=== PATIENT | male | born 1960 | race African-American/Black ===

== ENCOUNTER 2016-12-27 10:46 | Inpatient (IN) | payer MEDICAID ==
[~2016-12-27] VITALS: Ht 198.1 cm; Wt 94.8 kg
[~2016-12-27 10:46] MED LIST: ALPR2TAB2 PO; ASPI-1159 PO; HYDR-519 PO; TRAM-350 PO
[2016-12-27] MEDS ORDERED: SODIUM CHLORIDE 0.9% 1,000 ML IV ONE (11:03)
[2016-12-27] MEDS ORDERED: ASPIRIN 81MG TABLET PO ONE (11:15)
[2016-12-27] MEDS ORDERED: DILTIAZEM HCL 5MG/ML 5ML VIAL IV ONE (11:15)
[2016-12-27 11:58] LABS: BASOPHILS % 0.7 % (0.0-2.0); EOSINOPHILS % 0.2 % (0.0-5.0); HEMATOCRIT. 43.9 % (42.0-52.0); HEMOGLOBIN. 14.9 g/dL (14.0-18.0); LYMPHOCYTES % 26.4 % (20.0-50.0); MEAN CORPUSCULAR HEMOGLOBIN 32.3 pg (28.0-32.0); MEAN CORPUSCULAR VOLUME 95.2 fL (80.0-94.0); MEAN PLATELET VOLUME 7.2 fl (7.4-10.4); MONOCYTES % 5.1 % (2.0-8.0); NEUTROPHILS % 67.6 % (40.0-76.0); PLATELET 320 x1000/uL (130-400); RED BLOOD CELL COUNT 4.61 mill/uL (4.7-6.1); RED CELL DISTRIBUTION WIDTH 13.9 % (11.6-14.6)
[2016-12-27 12:06] LABS: CHLORIDE 106 mEq/L (98-107)
[2016-12-27 12:13] LABS: CARBON DIOXIDE 23 mEq/L (21-32)
[2016-12-27 12:15] LABS: TROPONIN I < 0.02 ng/mL (0.00-0.04)
[2016-12-27] MEDS ORDERED: MORPHINE SULFATE 10 MG/ML CPJ IV ONE (12:15)
[2016-12-27] MEDS ORDERED: ONDANSETRON HCL 4MG/2ML VIAL IV ONE (12:15)
[2016-12-27 12:19] LABS: INR 1.2; PARTIAL THROMBOPLASTIN TIME 27.3 sec (23.4-31.0); PROTHROMBIN TIME 12.1 sec (9.4-11.6)
[2016-12-27] MEDS ORDERED: MORPHINE SULFATE 10 MG/ML CPJ ONE (12:24)
[2016-12-27] MEDS ORDERED: DILTIAZEM HCL 5MG/ML 5ML VIAL IV PRN (13:45)
[2016-12-27] MEDS ORDERED: MAGNESIUM/ALUMINUM HYDROXIDE/SIMETHICONE 30ML UDC PO PRN (14:00)
[2016-12-27] MEDS ORDERED: CLONIDINE 0.1MG TABLET PO PRN (14:00)
[2016-12-27] MEDS ORDERED: ONDANSETRON HCL 4MG/2ML VIAL IV PRN (14:00)
[2016-12-27] MEDS ORDERED: ACETAMINOPHEN 325MG TABLET PO PRN (14:00)
[2016-12-27] MEDS ORDERED: IPRATROPIUM/ALBUTEROL 0.5-3(2.5)MG/3ML NEB INH PRN (14:00)
[2016-12-27] MEDS ORDERED: DOCUSATE SODIUM 100MG CAPSULE PO PRN (14:00)
[2016-12-27 14:38] LABS: CARBON DIOXIDE 24 mEq/L (21-32); CHLORIDE 108 mEq/L (98-107)
[2016-12-27 14:47] LABS: CREATINE KINASE 543 IU/L (39-308); CREATINE KINASE MB FRACTION 1.5 ng/mL (0.5-3.6); TROPONIN I < 0.02 ng/mL (0.00-0.04)
[2016-12-27 15:30] VITALS: BP 130/84
[2016-12-27] MEDS: DILTIAZEM HCL 60MG TABLET PO SCH ×2 (15:38→21:02)
[2016-12-27] MEDS: HYDROCODONE/ACETAMINOPHEN 5/325MG TABLET PO PRN ×2 (15:42→21:03)
[2016-12-27 16:00] VITALS: BP 130/84
[2016-12-27] MEDS: APIXABAN 5 MG TABLET PO SCH (17:32)
[2016-12-27 20:00] VITALS: BP 120/77
[2016-12-27] MEDS: LORAZEPAM 2MG/ML CPJ IV PRN (21:23)
[2016-12-27] MEDS: AMIODARONE HCL 200 MG TABLET PO SCH (21:23)
[2016-12-27 23:38] LABS: CREATINE KINASE 488 IU/L (39-308); CREATINE KINASE MB FRACTION 1.3 ng/mL (0.5-3.6); TROPONIN I < 0.02 ng/mL (0.00-0.04)
[2016-12-28] VITALS (7 sets, daily range): BP systolic 101–133; BP diastolic 62–83
[2016-12-28 00:02] LABS: CLARITY URINE CLEAR (CLEAR); COLOR URINE DARK YELLOW (YELLOW); GLUCOSE URINE NEGATIVE (NEGATIVE); KETONES URINE 1+ (NEGATIVE); LEUKOCYTE ESTERASE URINE NEGATIVE (NEGATIVE); NITRITE URINE NEGATIVE (NEGATIVE); OCCULT BLOOD URINE NEGATIVE (NEGATIVE); PH URINE 5.5 (4.5-8.0); PROTEIN URINE NEGATIVE (NEGATIVE); SPECIFIC GRAVITY URINE 1.028 (1.005-1.030)
[2016-12-28 00:29] LABS: *AMPHETAMINES SCREEN URINE NEGATIVE (NEGATIVE); *BARBITURATES SCREEN URINE NEGATIVE (NEGATIVE); *BENZODIAZEPINES SCREEN URINE PRESUMTIVE POSITIVE (NEGATIVE); *COCAINE SCREEN URINE NEGATIVE (NEGATIVE); CANNABINOID URINE SCREEN NEGATIVE (NEGATIVE); METHADONE URINE SCREEN NEGATIVE (NEGATIVE); OPIATES URINE SCREEN PRESUMTIVE POSITIVE (NEGATIVE); PHENCYCLIDINE URINE SCREEN NEGATIVE (NEGATIVE)
[2016-12-28] MEDS: LORAZEPAM 2MG/ML CPJ IV PRN ×3 (01:07→20:40)
[2016-12-28] MEDS: DILTIAZEM HCL 60MG TABLET PO SCH ×4 (03:57→21:03)
[2016-12-28] MEDS: HYDROCODONE/ACETAMINOPHEN 5/325MG TABLET PO PRN ×2 (03:58→09:57)
[2016-12-28 08:18] LABS: BASOPHILS % 1.1 % (0.0-2.0); EOSINOPHILS % 0.5 % (0.0-5.0); HEMOGLOBIN. 13.7 g/dL (14.0-18.0); LYMPHOCYTES % 35.5 % (20.0-50.0); MEAN CORPUSCULAR HEMOGLOBIN 31.6 pg (28.0-32.0); MEAN CORPUSCULAR VOLUME 94.5 fL (80.0-94.0); MEAN PLATELET VOLUME 7.4 fl (7.4-10.4); MONOCYTES % 6.1 % (2.0-8.0); NEUTROPHILS % 56.8 % (40.0-76.0); PLATELET 283 x1000/uL (130-400); RED BLOOD CELL COUNT 4.34 mill/uL (4.7-6.1); RED CELL DISTRIBUTION WIDTH 13.9 % (11.6-14.6)
[2016-12-28 08:52] LABS: T4 FREE 1.27 ng/dL (0.76-1.46)
[2016-12-28] MEDS: AMIODARONE HCL 200 MG TABLET PO SCH ×2 (09:56→20:40)
[2016-12-28] MEDS: APIXABAN 5 MG TABLET PO SCH ×2 (09:56→17:42)
[2016-12-28] MEDS: HYDROCODONE/ACETAMINOPHEN 10/325MG TABLET PO PRN ×2 (14:09→22:15)
[2016-12-28] MEDS ORDERED: PIPERACILLIN/TAZ 3.375G PREMIX 50 ML IV SCH (17:30)
[2016-12-28] MEDS: MORPHINE SULFATE 10 MG/ML CPJ IV PRN (18:16)
[2016-12-28] MEDS: PIPERACILLIN/TAZ 3.375G PREMIX 50 ML IV SCH (20:40)
[2016-12-29] VITALS (7 sets, daily range): BP systolic 99–131; BP diastolic 68–77
[2016-12-29] MEDS: TEMAZEPAM 15MG CAPSULE PO PRN (02:18)
[2016-12-29] MEDS: DILTIAZEM HCL 60MG TABLET PO SCH ×4 (02:29→20:13)
[2016-12-29] MEDS: PIPERACILLIN/TAZ 3.375G PREMIX 50 ML IV SCH (05:34)
[2016-12-29] MEDS: HYDROCODONE/ACETAMINOPHEN 10/325MG TABLET PO PRN ×3 (05:39→17:37)
[2016-12-29] MEDS: APIXABAN 5 MG TABLET PO SCH ×2 (08:08→17:36)
[2016-12-29 08:31] LABS: EOSINOPHILS % 0.5 % (0.0-5.0); HEMATOCRIT. 39.1 % (42.0-52.0); HEMOGLOBIN. 13.2 g/dL (14.0-18.0); LYMPHOCYTES % 33.3 % (20.0-50.0); MEAN CORPUSCULAR HEMOGLOBIN 31.9 pg (28.0-32.0); MEAN CORPUSCULAR VOLUME 94.2 fL (80.0-94.0); MEAN PLATELET VOLUME 7.7 fl (7.4-10.4); MONOCYTES % 4.4 % (2.0-8.0); NEUTROPHILS % 60.8 % (40.0-76.0); PLATELET 277 x1000/uL (130-400); RED BLOOD CELL COUNT 4.15 mill/uL (4.7-6.1); RED CELL DISTRIBUTION WIDTH 13.9 % (11.6-14.6)
[2016-12-29 09:23] LABS: CHLORIDE 106 mEq/L (98-107)
[2016-12-29 09:44] LABS: CARBON DIOXIDE 22 mEq/L (21-32)
[2016-12-29] MEDS: LORAZEPAM 2MG/ML CPJ IV PRN (10:12)
[2016-12-29] MEDS: AMIODARONE HCL 200 MG TABLET PO SCH ×2 (10:18→20:14)
[2016-12-29] MEDS: MORPHINE SULFATE 10 MG/ML CPJ IV PRN ×2 (14:14→20:14)
[2016-12-29] MEDS: ALPRAZOLAM 0.5 MG TABLET PO PRN (20:14)
[2016-12-30] VITALS: BP 127/88
[2016-12-30] MEDS: HYDROCODONE/ACETAMINOPHEN 10/325MG TABLET PO PRN ×3 (00:55→18:09)
[2016-12-30 04:00] VITALS: BP 118/86
[2016-12-30] MEDS: DILTIAZEM HCL 60MG TABLET PO SCH ×2 (04:55→09:05)
[2016-12-30] MEDS: MORPHINE SULFATE 10 MG/ML CPJ IV PRN ×2 (04:56→15:01)
[2016-12-30 07:43] LABS: CARBON DIOXIDE 23 mEq/L (21-32); CHLORIDE 104 mEq/L (98-107)
[2016-12-30 07:56] LABS: BASOPHILS % 1.2 % (0.0-2.0); EOSINOPHILS % 0.7 % (0.0-5.0); HEMATOCRIT. 41.2 % (42.0-52.0); HEMOGLOBIN. 13.9 g/dL (14.0-18.0); LYMPHOCYTES % 35.5 % (20.0-50.0); MEAN CORPUSCULAR HEMOGLOBIN 31.8 pg (28.0-32.0); MEAN CORPUSCULAR VOLUME 94.2 fL (80.0-94.0); MEAN PLATELET VOLUME 7.8 fl (7.4-10.4); MONOCYTES % 4.6 % (2.0-8.0); PLATELET 272 x1000/uL (130-400); RED BLOOD CELL COUNT 4.38 mill/uL (4.7-6.1); RED CELL DISTRIBUTION WIDTH 13.6 % (11.6-14.6)
[2016-12-30 08:00] VITALS: BP 136/88
[2016-12-30] MEDS: AMIODARONE HCL 200 MG TABLET PO SCH ×2 (09:05→20:48)
[2016-12-30] MEDS: APIXABAN 5 MG TABLET PO SCH ×2 (09:05→17:49)
[2016-12-30] MEDS: DILTIAZEM HCL 180MG CAPSULE CD 24HR PO SCH ×2 (14:37→20:48)
[2016-12-30] MEDS: NICOTINE 14MG PATCH TD SCH (14:37)
[2016-12-30 16:06] VITALS: BP 147/97
[2016-12-30] MEDS: ALPRAZOLAM 0.5 MG TABLET PO PRN (18:09)
[2016-12-30 20:00] VITALS: BP 110/66
[2016-12-30] MEDS: TEMAZEPAM 15MG CAPSULE PO PRN (20:48)
[2016-12-31] VITALS: BP 115/66
[2016-12-31] MEDS: HYDROCODONE/ACETAMINOPHEN 10/325MG TABLET PO PRN ×4 (00:05→19:45)
[2016-12-31] MEDS: ALPRAZOLAM 0.5 MG TABLET PO PRN ×3 (02:06→21:21)
[2016-12-31 04:00] VITALS: BP 112/76
[2016-12-31 08:00] VITALS: BP 113/79
[2016-12-31] MEDS: DILTIAZEM HCL 180MG CAPSULE CD 24HR PO SCH ×2 (09:00→21:20)
[2016-12-31] MEDS: NICOTINE 14MG PATCH TD SCH (09:34)
[2016-12-31] MEDS: AMIODARONE HCL 200 MG TABLET PO SCH ×2 (09:34→21:20)
[2016-12-31] MEDS: APIXABAN 5 MG TABLET PO SCH ×2 (09:34→18:14)
[2016-12-31 12:00] VITALS: BP 120/72
[2016-12-31 16:00] VITALS: BP 119/71
[2016-12-31] MEDS: MORPHINE SULFATE 10 MG/ML CPJ IV PRN ×2 (18:14→23:56)
[2016-12-31 20:00] VITALS: BP 117/65
[2016-12-31] MEDS: TEMAZEPAM 15MG CAPSULE PO PRN (21:21)
[2017-01-01] VITALS: BP 127/86
[2017-01-01 04:00] VITALS: BP 127/81
[2017-01-01] MEDS: ALPRAZOLAM 0.5 MG TABLET PO PRN ×2 (06:09→23:09)
[2017-01-01] MEDS: HYDROCODONE/ACETAMINOPHEN 10/325MG TABLET PO PRN ×3 (06:09→20:06)
[2017-01-01 08:00] VITALS: BP 122/84
[2017-01-01] MEDS ORDERED: LIDOCAINE HCL 1% 20ML VIAL (Pyxis) INJ ONE (08:21)
[2017-01-01] MEDS: DILTIAZEM HCL 180MG CAPSULE CD 24HR PO SCH ×2 (09:39→20:05)
[2017-01-01] MEDS: AMIODARONE HCL 200 MG TABLET PO SCH ×2 (09:39→20:05)
[2017-01-01] MEDS: APIXABAN 5 MG TABLET PO SCH ×2 (09:39→17:17)
[2017-01-01] MEDS: NICOTINE 14MG PATCH TD SCH (09:40)
[2017-01-01] MEDS: MORPHINE SULFATE 10 MG/ML CPJ IV PRN ×3 (09:57→22:22)
[2017-01-01] MEDS ORDERED: VANCOMYCIN 1500MG in DEXTROSE 5% WATER 250ML IV SCH (11:00)
[2017-01-01 13:07] VITALS: BP 109/89
[2017-01-01 16:00] VITALS: BP 132/88
[2017-01-01] MEDS: VANCOMYCIN 1250MG in DEXTROSE 5% WATER 250ML IV SCH ×2 (17:17→23:12)
[2017-01-01 20:00] VITALS: BP 108/80
[2017-01-01] MEDS: TEMAZEPAM 15MG CAPSULE PO PRN (23:09)
[2017-01-02] VITALS: BP 120/93
[2017-01-02] MEDS: HYDROCODONE/ACETAMINOPHEN 10/325MG TABLET PO PRN ×2 (03:30→10:02)
[2017-01-02 04:00] VITALS: BP 123/80
[2017-01-02] MEDS: MORPHINE SULFATE 10 MG/ML CPJ IV PRN (06:43)
[2017-01-02] MEDS: VANCOMYCIN 1250MG in DEXTROSE 5% WATER 250ML IV SCH (06:44)
[2017-01-02 08:00] VITALS: BP 127/95
[2017-01-02] MEDS: AMIODARONE HCL 200 MG TABLET PO SCH (10:02)
[2017-01-02] MEDS: APIXABAN 5 MG TABLET PO SCH (10:02)
[2017-01-02] MEDS: DILTIAZEM HCL 180MG CAPSULE CD 24HR PO SCH (10:02)
[2017-01-02] MEDS: NICOTINE 14MG PATCH TD SCH (10:03)
[2017-01-02 11:48] VITALS: BP 107/84
[2017-01-02 12:20] VITALS: BP 127/95
[2017-01-02] MEDS ORDERED: VANCOMYCIN 1500MG in DEXTROSE 5% WATER 250ML IV SCH (16:00)
== END 2017-01-02 13:50 | disposition home health service (06) | DRG 201 ==
LOC: ER 10:46 → EDBEDREQ 12:28 → ENRESERV 12:32 → 5WST 13:32
PROVIDERS: ADMIT Internal Medicine; ATTEND Internal Medicine
PROC: 05HY33Z Insertion of Infusion Device into Upper Vein, Percutaneous Approach (ICD-10-PCS; principal; 2017-01-01)
DX: I48.1 Persistent atrial fibrillation (principal); M86.9 Osteomyelitis, unspecified; I10 Essential (primary) hypertension; J44.9 Chronic obstructive pulmonary disease, unspecified; M19.90 Unspecified osteoarthritis, unspecified site; G40.909 Epilepsy, unspecified, not intractable, without status epilepticus; F41.9 Anxiety disorder, unspecified; F17.200 Nicotine dependence, unspecified, uncomplicated; Z79.82 Long term (current) use of aspirin; Z79.899 Other long term (current) drug therapy; G89.18 Other acute postprocedural pain
CPT/HCPCS: 36415; 36569; 71010; 73610; 76937; 78315; 80048; 80053; 80061; 80305; 81003; 82550; 82553; 83735; 83880; 84439; 84443; 84481; 84484; 85025; 85379; 85610; 85651; 85730; 86140; 87040; 93005; 93306; 93971; 96361; 96374; 96375; 97162; 99285; A9503; C1725; C1893; J2060; J2270; J2405; J2543; J3370; J3490; J7030; J7060

== ENCOUNTER 2017-01-20 11:29 | Emergency (ER) | payer MEDICAID, OTHER ==
[~2017-01-20] VITALS: Ht 190.5 cm; Wt 91.0 kg
[2017-01-20] MEDS ORDERED: SODIUM CHLORIDE 0.9% 1,000 ML IV ONE (13:25)
[2017-01-20] MEDS ORDERED: SODIUM CHLORIDE 0.9% 500 ML IV ONE (13:57)
[2017-01-20] MEDS ORDERED: IBUPROFEN 600MG TABLET PO ONE (14:00)
[2017-01-20 15:22] VITALS: BP 110/71
== END 2017-01-20 15:23 | disposition home or self-care (01) ==
LOC: ER 11:29
DX: M25.572 Pain in left ankle and joints of left foot (principal); R19.03 Right lower quadrant abdominal swelling, mass and lump; I10 Essential (primary) hypertension; I48.91 Unspecified atrial fibrillation; F41.9 Anxiety disorder, unspecified; F17.210 Nicotine dependence, cigarettes, uncomplicated; Z79.01 Long term (current) use of anticoagulants; Z79.82 Long term (current) use of aspirin; Z98.890 Other specified postprocedural states
CPT/HCPCS: 99284; J7040; J7030

== ENCOUNTER 2017-12-04 09:31 | Inpatient (IN) | payer OTHER ==
[~2017-12-04] VITALS: Ht 190.5 cm; Wt 95.3 kg
[~2017-12-04 09:31] MED LIST changes: +RIVA10TA PO
[2017-12-04] MEDS ORDERED: MORPHINE SULFATE 4 MG/ML CPJ (NOT FOR IM USE) IV STA (09:55)
[2017-12-04] MEDS ORDERED: ONDANSETRON HCL 4MG/2ML INJ IV STA (09:55)
[2017-12-04] MEDS ORDERED: DILTIAZEM HCL 5MG/ML 5ML VIAL IV ONE (10:00)
[2017-12-04] MEDS ORDERED: ASPIRIN 81MG TABLET PO ONE (10:00)
[2017-12-04 10:09] LABS: BASOPHILS % 1.2 % (0.0-2.0); EOSINOPHILS % 0.9 % (0.0-5.0); HEMATOCRIT. 44.5 % (42.0-52.0); HEMOGLOBIN. 15.3 g/dL (14.0-18.0); LYMPHOCYTES % 25.6 % (20.0-50.0); MEAN CORPUSCULAR HEMOGLOBIN 33.4 pg (28.0-32.0); MEAN CORPUSCULAR VOLUME 97.1 fL (80.0-94.0); MEAN PLATELET VOLUME 7.3 fl (7.4-10.4); MONOCYTES % 4.5 % (2.0-8.0); NEUTROPHILS % 67.8 % (40.0-76.0); PLATELET 298 x1000/uL (130-400); RED BLOOD CELL COUNT 4.59 mill/uL (4.7-6.1); RED CELL DISTRIBUTION WIDTH 13.9 % (11.6-14.6)
[2017-12-04 10:14] LABS: CHLORIDE 100 mEq/L (98-107)
[2017-12-04] MEDS ORDERED: ONDANSETRON HCL 4MG/2ML INJ IV PRN (11:30)
[2017-12-04] MEDS: ALPRAZOLAM 0.5 MG TABLET PO PRN ×2 (11:57→20:33)
[2017-12-04 12:21] VITALS: BP 144/92
[2017-12-04] MEDS ORDERED: DILTIAZEM HCL 60MG TABLET PO SCH (14:00)
[2017-12-04] MEDS: DILTIAZEM HCL 90MG TABLET PO SCH ×3 (14:06→23:11)
[2017-12-04 16:00] VITALS: BP 93/50
[2017-12-04] MEDS: RIVAROXABAN 20 MG TABLET PO SCH (17:35)
[2017-12-04] MEDS: MORPHINE SULFATE 4 MG/ML CPJ (NOT FOR IM USE) IV PRN ×2 (17:36→22:46)
[2017-12-04] MEDS ORDERED: DIGOXIN 250MCG TABLET PO SCH (18:00)
[2017-12-04 19:52] VITALS: BP 101/54
[2017-12-04] MEDS: HYDROCODONE/ACETAMINOPHEN 5/325MG TABLET PO PRN (20:34)
[2017-12-04] MEDS ORDERED: AMLODIPINE 5MG TABLET PO SCH (21:00)
[2017-12-04 22:46] VITALS: BP 127/73
[2017-12-05 01:28] LABS: CLARITY URINE CLEAR (CLEAR); COLOR URINE YELLOW (YELLOW); KETONES URINE NEGATIVE (NEGATIVE); LEUKOCYTE ESTERASE URINE NEGATIVE (NEGATIVE); NITRITE URINE NEGATIVE (NEGATIVE); OCCULT BLOOD URINE NEGATIVE (NEGATIVE); PH URINE 7.5 (4.5-8.0); PROTEIN URINE NEGATIVE (NEGATIVE); SPECIFIC GRAVITY URINE 1.011 (1.005-1.030); UROBILINOGEN URINE 0.2 E.U./dL (0.2-1.0)
[2017-12-05 01:44] LABS: *AMPHETAMINES SCREEN URINE NEGATIVE (NEGATIVE)
[2017-12-05 01:45] LABS: *BARBITURATES SCREEN URINE NEGATIVE (NEGATIVE); *BENZODIAZEPINES SCREEN URINE PRESUMTIVE POSITIVE (NEGATIVE); *COCAINE SCREEN URINE NEGATIVE (NEGATIVE); METHADONE URINE SCREEN NEGATIVE (NEGATIVE); PHENCYCLIDINE URINE SCREEN NEGATIVE (NEGATIVE)
[2017-12-05 01:46] LABS: CANNABINOID URINE SCREEN NEGATIVE (NEGATIVE); OPIATES URINE SCREEN PRESUMTIVE POSITIVE (NEGATIVE)
[2017-12-05] MEDS: DILTIAZEM HCL 90MG TABLET PO SCH ×3 (04:59→17:35)
[2017-12-05 08:00] VITALS: BP 114/70
[2017-12-05] MEDS: OMEPRAZOLE 20MG CAPSULE EXTENDED RELEASE PO SCH (08:25)
[2017-12-05] MEDS: MORPHINE SULFATE 4 MG/ML CPJ (NOT FOR IM USE) IV PRN ×4 (08:47→22:13)
[2017-12-05] MEDS: HYDROCODONE/ACETAMINOPHEN 5/325MG TABLET PO PRN (11:21)
[2017-12-05] MEDS: ALPRAZOLAM 0.5 MG TABLET PO PRN ×2 (11:32→21:39)
[2017-12-05 11:38] VITALS: BP 123/85
[2017-12-05] MEDS ORDERED: LACTULOSE 20G/30ML UDC PO PRN (12:45)
[2017-12-05] MEDS ORDERED: BISACODYL 10MG SUPP PR PRN (12:45)
[2017-12-05] MEDS: DOCUSATE SODIUM 250MG CAPSULE PO SCH (12:45)
[2017-12-05] MEDS ORDERED: NA PHOS,M-B/NA PHOS,DI-BA ENEMA 118ML PR ONE (12:45)
[2017-12-05 16:00] VITALS: BP 93/53
[2017-12-05 16:43] LABS: BASOPHILS % 0.9 % (0.0-2.0); EOSINOPHILS % 0.9 % (0.0-5.0); HEMATOCRIT. 46.6 % (42.0-52.0); HEMOGLOBIN. 15.5 g/dL (14.0-18.0); LYMPHOCYTES % 34.4 % (20.0-50.0); MEAN CORPUSCULAR HEMOGLOBIN 33.3 pg (28.0-32.0); MEAN CORPUSCULAR VOLUME 100.1 fL (80.0-94.0); MEAN PLATELET VOLUME 7.7 fl (7.4-10.4); MONOCYTES % 5.5 % (2.0-8.0); NEUTROPHILS % 58.3 % (40.0-76.0); PLATELET 266 x1000/uL (130-400); RED BLOOD CELL COUNT 4.66 mill/uL (4.7-6.1); RED CELL DISTRIBUTION WIDTH 14.1 % (11.6-14.6)
[2017-12-05 16:46] LABS: CHLORIDE 104 mEq/L (98-107)
[2017-12-05] MEDS: RIVAROXABAN 20 MG TABLET PO SCH (17:00)
[2017-12-05] MEDS: DIGOXIN 125MCG TABLET PO SCH (17:36)
[2017-12-05] MEDS ORDERED: SODIUM CHLORIDE 0.9% 500 ML IV ONE (18:15)
[2017-12-05] MEDS ORDERED: SODIUM CHLORIDE 0.9% 250 ML IV ONE (18:15)
[2017-12-05 20:00] VITALS: BP 134/82
[2017-12-06 01:22] VITALS: BP 122/74
[2017-12-06] MEDS: DILTIAZEM HCL 90MG TABLET PO SCH ×3 (01:24→17:25)
[2017-12-06] MEDS: HYDROCODONE/ACETAMINOPHEN 5/325MG TABLET PO PRN ×5 (01:26→21:41)
[2017-12-06 04:00] VITALS: BP 105/76
[2017-12-06 08:00] VITALS: BP 127/77
[2017-12-06] MEDS: DOCUSATE SODIUM 250MG CAPSULE PO SCH (09:19)
[2017-12-06] MEDS: OMEPRAZOLE 20MG CAPSULE EXTENDED RELEASE PO SCH (09:19)
[2017-12-06 12:00] VITALS: BP 128/70
[2017-12-06] MEDS: MORPHINE SULFATE 4 MG/ML CPJ (NOT FOR IM USE) IV PRN ×2 (12:08→20:16)
[2017-12-06] MEDS: ALPRAZOLAM 0.5 MG TABLET PO PRN ×2 (12:14→21:35)
[2017-12-06 16:00] VITALS: BP 127/83
[2017-12-06] MEDS: RIVAROXABAN 20 MG TABLET PO SCH (17:25)
[2017-12-06] MEDS: DIGOXIN 125MCG TABLET PO SCH (17:25)
[2017-12-06 20:00] VITALS: BP 126/80
[2017-12-07] VITALS (7 sets, daily range): BP systolic 116–121; BP diastolic 70–87
[2017-12-07] MEDS: MORPHINE SULFATE 4 MG/ML CPJ (NOT FOR IM USE) IV PRN ×3 (00:38→16:59)
[2017-12-07] MEDS: DILTIAZEM HCL 90MG TABLET PO SCH ×3 (01:31→17:00)
[2017-12-07] MEDS: DOCUSATE SODIUM 250MG CAPSULE PO SCH (08:36)
[2017-12-07] MEDS: OMEPRAZOLE 20MG CAPSULE EXTENDED RELEASE PO SCH (08:37)
[2017-12-07] MEDS: HYDROCODONE/ACETAMINOPHEN 5/325MG TABLET PO PRN ×2 (10:31→14:37)
[2017-12-07] MEDS: ALPRAZOLAM 0.5 MG TABLET PO PRN ×2 (11:49→17:00)
[2017-12-07] MEDS ORDERED: DIGO125T82 MT (12:38)
[2017-12-07] MEDS ORDERED: FAMO-135 MT (12:39)
[2017-12-07] MEDS ORDERED: FAMOTIDINE 20MG TABLET PO SCH (17:00)
[2017-12-07] MEDS: RIVAROXABAN 20 MG TABLET PO SCH (17:00)
[2017-12-07] MEDS: DIGOXIN 125MCG TABLET PO SCH (17:00)
== END 2017-12-07 16:25 | disposition home or self-care (01) | DRG 201 ==
LOC: ER 09:31 → 7WST 11:03 → EDBEDREQ 11:06 → ENRESERV 11:15
PROVIDERS: ADMIT Internal Medicine; ATTEND Internal Medicine
DX: I48.91 Unspecified atrial fibrillation (principal); E87.1 Hypo-osmolality and hyponatremia; I48.2 Chronic atrial fibrillation; F41.9 Anxiety disorder, unspecified; G89.29 Other chronic pain; J44.9 Chronic obstructive pulmonary disease, unspecified; M19.90 Unspecified osteoarthritis, unspecified site; Z79.01 Long term (current) use of anticoagulants; Z91.19 Patient's noncompliance with other medical treatment and regimen; F17.210 Nicotine dependence, cigarettes, uncomplicated; I10 Essential (primary) hypertension
CPT/HCPCS: 36415; 71045; 73610; 80048; 80053; 80305; 81003; 83880; 84484; 85025; 93005; 93306; 93970; 96374; 96375; 99285; J2270; J2405; J3490; J7040

== ENCOUNTER 2018-01-16 16:30 | Inpatient (IN) | payer MEDICAID, OTHER ==
[~2018-01-16] VITALS: Ht 185.4 cm; Wt 99.8 kg
[~2018-01-16 16:30] MED LIST changes: +DIGO125T82 MT; +FAMO-135 MT
[2018-01-16] MEDS ORDERED: MORPHINE SULFATE 4 MG/ML CPJ (NOT FOR IM USE) IV STA (17:05)
[2018-01-16] MEDS ORDERED: ONDANSETRON HCL 4MG/2ML INJ IV STA (17:05)
[2018-01-16] MEDS ORDERED: DILTIAZEM HCL 30MG TABLET PO ONE (17:15)
[2018-01-16] MEDS ORDERED: ASPIRIN 81MG TABLET PO ONE (17:15)
[2018-01-16] MEDS ORDERED: DILTIAZEM HCL 5MG/ML 5ML VIAL IV NR (17:15)
[2018-01-16 17:50] LABS: BASOPHILS % 0.4 % (0.0-2.0); EOSINOPHILS % 0.3 % (0.0-5.0); HEMOGLOBIN. 16.3 g/dL (14.0-18.0); LYMPHOCYTES % 26.4 % (20.0-50.0); MEAN CORPUSCULAR HEMOGLOBIN 32.7 pg (28.0-32.0); MEAN CORPUSCULAR VOLUME 96.4 fL (80.0-94.0); MEAN PLATELET VOLUME 7.8 fl (7.4-10.4); MONOCYTES % 7.2 % (2.0-8.0); NEUTROPHILS % 65.7 % (40.0-76.0); PLATELET 292 x1000/uL (130-400); RED BLOOD CELL COUNT 4.98 mill/uL (4.7-6.1); RED CELL DISTRIBUTION WIDTH 13.2 % (11.6-14.6)
[2018-01-16 17:56] LABS: CHLORIDE 99 mEq/L (98-107)
[2018-01-16 17:58] LABS: D-DIMER 0.22 mg/L FEU (<0.50); INR 1.1; PARTIAL THROMBOPLASTIN TIME 27.1 sec (23.4-31.0); PROTHROMBIN TIME 10.7 sec (9.1-11.1)
[2018-01-16 18:04] LABS: ETHANOL BLOOD < 10 mg/dL
[2018-01-16 18:15] LABS: DIGOXIN 0.5 ng/mL (0.9-2.0)
[2018-01-16] MEDS ORDERED: LORAZEPAM 1MG TABLET PO ONE (18:45)
[2018-01-16] MEDS ORDERED: DOCUSATE SODIUM 100MG CAPSULE PO PRN (19:15)
[2018-01-16] MEDS ORDERED: CLONIDINE 0.1MG TABLET PO PRN (19:15)
[2018-01-16] MEDS ORDERED: ACETAMINOPHEN 325MG TABLET PO PRN (19:15)
[2018-01-16] MEDS ORDERED: IPRATROPIUM/ALBUTEROL 0.5-3(2.5)MG/3ML NEB INH PRN (19:15)
[2018-01-16 20:00] VITALS: BP 129/81
[2018-01-16 21:35] VITALS: BP 125/86
[2018-01-16] MEDS: HYDROCODONE/ACETAMINOPHEN 5/325MG TABLET PO PRN (21:48)
[2018-01-16 23:12] LABS: CHLORIDE 101 mEq/L (98-107)
[2018-01-16 23:18] LABS: CREATINE KINASE 520 IU/L (39-308); CREATINE KINASE MB FRACTION 1.6 ng/mL (0.5-3.6)
[2018-01-16] MEDS: DILTIAZEM HCL 30MG TABLET PO SCH (23:49)
[2018-01-17] VITALS: BP 125/68
[2018-01-17] MEDS ORDERED: LORAZEPAM 2MG/ML CPJ IV PRN (05:45)
[2018-01-17] MEDS: DILTIAZEM HCL 30MG TABLET PO SCH ×4 (05:57→22:39)
[2018-01-17 06:53] LABS: BASOPHILS % 0.8 % (0.0-2.0); EOSINOPHILS % 0.6 % (0.0-5.0); HEMATOCRIT. 44.7 % (42.0-52.0); HEMOGLOBIN. 15.3 g/dL (14.0-18.0); LYMPHOCYTES % 35.7 % (20.0-50.0); MEAN CORPUSCULAR HEMOGLOBIN 32.8 pg (28.0-32.0); MEAN CORPUSCULAR VOLUME 95.5 fL (80.0-94.0); MEAN PLATELET VOLUME 7.8 fl (7.4-10.4); MONOCYTES % 7.3 % (2.0-8.0); NEUTROPHILS % 55.6 % (40.0-76.0); PLATELET 255 x1000/uL (130-400); RED BLOOD CELL COUNT 4.68 mill/uL (4.7-6.1); RED CELL DISTRIBUTION WIDTH 13.2 % (11.6-14.6)
[2018-01-17 08:00] VITALS: BP_SYST 143; BP_SYST 90; BP_DIAS 51; BP_DIAS 73
[2018-01-17 08:12] LABS: CREATINE KINASE 421 IU/L (39-308); CREATINE KINASE MB FRACTION 1.6 ng/mL (0.5-3.6); HDL CHOLESTEROL 32 mg/dL (40-59); LDL CHOLESTEROL 110 mg/dL (5-100)
[2018-01-17] MEDS: APIXABAN 2.5 MG TABLET PO SCH ×2 (08:57→17:31)
[2018-01-17] MEDS: HYDROCODONE/ACETAMINOPHEN 5/325MG TABLET PO PRN ×2 (08:58→22:41)
[2018-01-17 10:56] LABS: PHOSPHORUS 5.9 mg/dL (2.5-4.9)
[2018-01-17] MEDS: SODIUM CHLORIDE 0.9% 1,000 ML IV SCH ×2 (11:35→23:39)
[2018-01-17 12:00] VITALS: BP 121/75
[2018-01-17] MEDS: MORPHINE SULFATE 4 MG/ML CPJ (NOT FOR IM USE) IV PRN ×2 (12:40→19:44)
[2018-01-17 13:32] LABS: CLARITY URINE CLOUDY (CLEAR); COLOR URINE YELLOW (YELLOW); KETONES URINE TRACE (NEGATIVE); LEUKOCYTE ESTERASE URINE NEGATIVE (NEGATIVE); NITRITE URINE NEGATIVE (NEGATIVE); OCCULT BLOOD URINE NEGATIVE (NEGATIVE); PH URINE 5.5 (4.5-8.0); PROTEIN URINE 1+ (NEGATIVE); SPECIFIC GRAVITY URINE 1.021 (1.005-1.030); UROBILINOGEN URINE 0.2 E.U./dL (0.2-1.0)
[2018-01-17 16:00] VITALS: BP 113/65
[2018-01-17] MEDS: ALPRAZOLAM 0.5 MG TABLET PO PRN ×2 (17:31→22:39)
[2018-01-17 20:00] VITALS: BP 124/89
[2018-01-17] MEDS: ONDANSETRON HCL 4MG/2ML INJ IV PRN (22:41)
[2018-01-18] MEDS: ONDANSETRON HCL 4MG/2ML INJ IV PRN ×2 (06:18→17:55)
[2018-01-18] MEDS: DILTIAZEM HCL 30MG TABLET PO SCH ×3 (06:18→17:45)
[2018-01-18] MEDS: MORPHINE SULFATE 4 MG/ML CPJ (NOT FOR IM USE) IV PRN ×4 (06:19→21:58)
[2018-01-18 07:18] LABS: BASOPHILS % 1.2 % (0.0-2.0); HEMATOCRIT. 40.2 % (42.0-52.0); HEMOGLOBIN. 13.7 g/dL (14.0-18.0); LYMPHOCYTES % 49.4 % (20.0-50.0); MEAN CORPUSCULAR HEMOGLOBIN 32.7 pg (28.0-32.0); MEAN CORPUSCULAR VOLUME 95.9 fL (80.0-94.0); MEAN PLATELET VOLUME 7.6 fl (7.4-10.4); MONOCYTES % 6.3 % (2.0-8.0); NEUTROPHILS % 41.1 % (40.0-76.0); PLATELET 214 x1000/uL (130-400); RED BLOOD CELL COUNT 4.19 mill/uL (4.7-6.1); RED CELL DISTRIBUTION WIDTH 13.1 % (11.6-14.6)
[2018-01-18 08:00] VITALS: BP 106/67
[2018-01-18 08:02] LABS: CHLORIDE 102 mEq/L (98-107)
[2018-01-18] MEDS: APIXABAN 2.5 MG TABLET PO SCH ×2 (10:57→17:22)
[2018-01-18 12:00] VITALS: BP 129/89
[2018-01-18] MEDS: ALPRAZOLAM 0.5 MG TABLET PO PRN ×2 (14:48→21:57)
[2018-01-18 16:00] VITALS: BP 104/78
[2018-01-18] MEDS: HYDROCODONE/ACETAMINOPHEN 5/325MG TABLET PO PRN (16:39)
[2018-01-18] MEDS: SODIUM CHLORIDE 0.9% 1,000 ML IV SCH (17:23)
[2018-01-18 20:00] VITALS: BP 142/91
[2018-01-19 00:05] VITALS: BP 103/63
[2018-01-19] MEDS: ONDANSETRON HCL 4MG/2ML INJ IV PRN ×5 (00:24→20:10)
[2018-01-19 04:45] VITALS: BP 130/90
[2018-01-19] MEDS: MORPHINE SULFATE 4 MG/ML CPJ (NOT FOR IM USE) IV PRN ×2 (05:01→08:19)
[2018-01-19] MEDS: SODIUM CHLORIDE 0.9% 1,000 ML IV SCH ×2 (06:46→15:48)
[2018-01-19 07:55] LABS: BASOPHILS % 1.1 % (0.0-2.0); EOSINOPHILS % 1.6 % (0.0-5.0); HEMATOCRIT. 39.6 % (42.0-52.0); HEMOGLOBIN. 13.4 g/dL (14.0-18.0); LYMPHOCYTES % 33.9 % (20.0-50.0); MEAN CORPUSCULAR HEMOGLOBIN 32.6 pg (28.0-32.0); MEAN CORPUSCULAR VOLUME 96.1 fL (80.0-94.0); MEAN PLATELET VOLUME 7.8 fl (7.4-10.4); MONOCYTES % 9.2 % (2.0-8.0); NEUTROPHILS % 54.2 % (40.0-76.0); PLATELET 218 x1000/uL (130-400); RED BLOOD CELL COUNT 4.12 mill/uL (4.7-6.1)
[2018-01-19 08:00] VITALS: BP 163/105
[2018-01-19] MEDS: APIXABAN 2.5 MG TABLET PO SCH (09:00)
[2018-01-19 10:33] LABS: CHLORIDE 101 mEq/L (98-107)
[2018-01-19 12:00] VITALS: BP 174/105
[2018-01-19] MEDS: DILTIAZEM HCL 30MG TABLET PO SCH ×3 (12:00→18:37)
[2018-01-19] MEDS: ALPRAZOLAM 0.5 MG TABLET PO PRN ×2 (15:58→21:45)
[2018-01-19] MEDS: HYDROCODONE/ACETAMINOPHEN 10/325MG TABLET PO PRN ×2 (16:01→21:45)
[2018-01-19] MEDS ORDERED: MAGNESIUM/ALUMINUM HYDROXIDE/SIMETHICONE 30ML UDC PO PRN (16:45)
[2018-01-19] MEDS: PANTOPRAZOLE SODIUM 40 MG/VIAL IV SCH (18:36)
[2018-01-19] MEDS: APIXABAN 5 MG TABLET PO SCH (18:37)
[2018-01-19] MEDS ORDERED: INFLUENZA VIRUS VACCINE(AFLURIA) 0.5ML SYR IM ONE (19:00)
[2018-01-19 20:00] VITALS: BP 125/89
[2018-01-19] MEDS: ATORVASTATIN CALCIUM 40MG TABLET PO SCH (21:45)
[2018-01-20] VITALS: BP 130/89
[2018-01-20 04:00] VITALS: BP 120/81
[2018-01-20] MEDS: SODIUM CHLORIDE 0.9% 1,000 ML IV SCH (04:40)
[2018-01-20] MEDS: ONDANSETRON HCL 4MG/2ML INJ IV PRN (05:31)
[2018-01-20] MEDS: ALPRAZOLAM 0.5 MG TABLET PO PRN ×2 (05:41→20:50)
[2018-01-20] MEDS: HYDROCODONE/ACETAMINOPHEN 10/325MG TABLET PO PRN ×3 (05:41→18:15)
[2018-01-20] MEDS: DILTIAZEM HCL 30MG TABLET PO SCH ×4 (05:42→18:15)
[2018-01-20 06:24] LABS: BASOPHILS % 0.5 % (0.0-2.0); EOSINOPHILS % 0.6 % (0.0-5.0); HEMATOCRIT. 40.6 % (42.0-52.0); HEMOGLOBIN. 13.7 g/dL (14.0-18.0); LYMPHOCYTES % 20.4 % (20.0-50.0); MEAN CORPUSCULAR HEMOGLOBIN 32.7 pg (28.0-32.0); MEAN CORPUSCULAR VOLUME 96.5 fL (80.0-94.0); MEAN PLATELET VOLUME 7.6 fl (7.4-10.4); MONOCYTES % 7.8 % (2.0-8.0); NEUTROPHILS % 70.7 % (40.0-76.0); PLATELET 219 x1000/uL (130-400); RED BLOOD CELL COUNT 4.21 mill/uL (4.7-6.1); RED CELL DISTRIBUTION WIDTH 12.7 % (11.6-14.6)
[2018-01-20 06:26] LABS: CHLORIDE 100 mEq/L (98-107)
[2018-01-20 06:28] LABS: PHOSPHORUS 2.4 mg/dL (2.5-4.9)
[2018-01-20 08:00] VITALS: BP 117/66
[2018-01-20] MEDS ORDERED: SODIUM PHOS,M-BASIC-D-BASIC 15 MM in DEXT 5% WATER 245 ML IV NR (09:00)
[2018-01-20] MEDS: PANTOPRAZOLE SODIUM 40 MG/VIAL IV SCH (09:23)
[2018-01-20] MEDS: APIXABAN 5 MG TABLET PO SCH ×2 (09:23→18:14)
[2018-01-20 12:00] VITALS: BP 139/87
[2018-01-20 16:00] VITALS: BP 122/71
[2018-01-20] MEDS: METOCLOPRAMIDE HCL 10MG/2ML VIAL IV SCH (18:15)
[2018-01-20 20:00] VITALS: BP 118/83
[2018-01-20] MEDS: ATORVASTATIN CALCIUM 40MG TABLET PO SCH (20:50)
[2018-01-21] VITALS: BP 104/72
[2018-01-21] MEDS: METOCLOPRAMIDE HCL 10MG/2ML VIAL IV SCH ×4 (00:11→17:26)
[2018-01-21] MEDS: HYDROCODONE/ACETAMINOPHEN 10/325MG TABLET PO PRN ×4 (00:11→20:42)
[2018-01-21] MEDS: DILTIAZEM HCL 30MG TABLET PO SCH ×4 (06:00→17:08)
[2018-01-21 07:05] VITALS: BP 91/59
[2018-01-21 07:58] LABS: BASOPHILS % 1.2 % (0.0-2.0); EOSINOPHILS % 2.6 % (0.0-5.0); HEMATOCRIT. 35.9 % (42.0-52.0); HEMOGLOBIN. 12.5 g/dL (14.0-18.0); LYMPHOCYTES % 53.2 % (20.0-50.0); MEAN CORPUSCULAR HEMOGLOBIN 33.5 pg (28.0-32.0); MEAN CORPUSCULAR VOLUME 95.7 fL (80.0-94.0); MEAN PLATELET VOLUME 7.5 fl (7.4-10.4); PLATELET 216 x1000/uL (130-400); RED BLOOD CELL COUNT 3.75 mill/uL (4.7-6.1); RED CELL DISTRIBUTION WIDTH 12.7 % (11.6-14.6)
[2018-01-21 08:13] LABS: CHLORIDE 97 mEq/L (98-107)
[2018-01-21] MEDS: FAMOTIDINE 20MG/2ML VIAL IV SCH ×2 (08:18→20:42)
[2018-01-21] MEDS: APIXABAN 5 MG TABLET PO SCH ×2 (08:18→17:26)
[2018-01-21] MEDS ORDERED: MAGNESIUM 2 G PREMIX 50 ML IV SCH (10:00)
[2018-01-21 12:00] VITALS: BP 110/77
[2018-01-21] MEDS: ALPRAZOLAM 0.5 MG TABLET PO PRN ×2 (13:33→20:42)
[2018-01-21 16:00] VITALS: BP 106/74
[2018-01-21] MEDS ORDERED: LIP40 PO (18:11)
[2018-01-21] MEDS ORDERED: DILT30TA38 PO (18:11)
[2018-01-21] MEDS ORDERED: APIX5TAB PO (18:11)
[2018-01-21 19:48] VITALS: BP 123/78
[2018-01-21] MEDS: ATORVASTATIN CALCIUM 40MG TABLET PO SCH (20:42)
[2018-01-22] VITALS: BP 121/84
[2018-01-22] MEDS: METOCLOPRAMIDE HCL 10MG/2ML VIAL IV SCH ×3 (00:33→12:00)
[2018-01-22] MEDS: ALPRAZOLAM 0.5 MG TABLET PO PRN ×2 (00:33→06:34)
[2018-01-22 03:27] VITALS: BP 118/72
[2018-01-22] MEDS: HYDROCODONE/ACETAMINOPHEN 10/325MG TABLET PO PRN ×2 (03:28→09:38)
[2018-01-22] MEDS: DILTIAZEM HCL 30MG TABLET PO SCH ×3 (06:00→12:00)
[2018-01-22 06:25] VITALS: BP 144/82
[2018-01-22 07:46] LABS: BASOPHILS % 1.9 % (0.0-2.0); CHLORIDE 99 mEq/L (98-107); HEMATOCRIT. 36.4 % (42.0-52.0); HEMOGLOBIN. 12.4 g/dL (14.0-18.0); LYMPHOCYTES % 46.9 % (20.0-50.0); MEAN CORPUSCULAR HEMOGLOBIN 32.8 pg (28.0-32.0); MEAN CORPUSCULAR VOLUME 96.4 fL (80.0-94.0); MEAN PLATELET VOLUME 7.7 fl (7.4-10.4); MONOCYTES % 5.9 % (2.0-8.0); NEUTROPHILS % 43.3 % (40.0-76.0); PLATELET 228 x1000/uL (130-400); RED BLOOD CELL COUNT 3.77 mill/uL (4.7-6.1); RED CELL DISTRIBUTION WIDTH 12.5 % (11.6-14.6)
[2018-01-22 08:00] VITALS: BP 126/89
[2018-01-22 08:09] LABS: PHOSPHORUS 3.1 mg/dL (2.5-4.9)
[2018-01-22] MEDS: FAMOTIDINE 20MG/2ML VIAL IV SCH (09:37)
[2018-01-22] MEDS: APIXABAN 5 MG TABLET PO SCH (09:38)
[2018-01-22 13:01] VITALS: BP 145/83
[2018-01-22] MEDS ORDERED: SODIUM BICARBONATE 4% (2.4MEQ) 5ML VIAL IV ONE (13:13)
== END 2018-01-22 13:40 | disposition home or self-care (01) | DRG 469 ==
LOC: ER 16:30 → 5WST 18:42 → EDBEDREQ 18:44 → EDBEDREQTM 18:44 → ENRESERV 19:50
PROVIDERS: ADMIT Internal Medicine; ATTEND Internal Medicine
DX: N17.0 Acute kidney failure with tubular necrosis (principal); E11.22 Type 2 diabetes mellitus with diabetic chronic kidney disease; E87.2 Acidosis; E87.1 Hypo-osmolality and hyponatremia; K56.0 Paralytic ileus; I48.91 Unspecified atrial fibrillation; E86.9 Volume depletion, unspecified; M62.82 Rhabdomyolysis; N18.3 Chronic kidney disease, stage 3 (moderate); G89.29 Other chronic pain; R07.89 Other chest pain; M54.5 Low back pain; E05.90 Thyrotoxicosis, unspecified without thyrotoxic crisis or storm; Z96.659 Presence of unspecified artificial knee joint; E78.5 Hyperlipidemia, unspecified; F17.210 Nicotine dependence, cigarettes, uncomplicated; F41.9 Anxiety disorder, unspecified; I12.9 Hypertensive chronic kidney disease with stage 1 through stage 4 chronic kidney disease, or unspecified chronic kidney disease; J44.9 Chronic obstructive pulmonary disease, unspecified; Z79.01 Long term (current) use of anticoagulants; Z79.82 Long term (current) use of aspirin
CPT/HCPCS: 36415; 71045; 74018; 74176; 76770; 80048; 80061; 80162; 82550; 82553; 83605; 83735; 83880; 84100; 84443; 84484; 85379; 93005; 93306; 93970; 96361; 96374; 96375; 96376; 99285; C1893; C9113; G0482; J2060; J2270; J2405; J2765; J3475; J3490; J7030; J7060

== ENCOUNTER 2018-05-31 11:45 | Inpatient (IN) | payer MEDICAID ==
[~2018-05-31] VITALS: Ht 185.4 cm; Wt 99.4 kg
[~2018-05-31 11:45] MED LIST changes: +APIX5TAB PO; -DIGO125T82 MT; +DILT30TA38 PO; +LIP40 PO; -RIVA10TA PO; -TRAM-350 PO
[2018-05-31] MEDS ORDERED: ASPIRIN 325MG EC TABLET PO ONE (12:30)
[2018-05-31] MEDS ORDERED: HYDROCODONE/ACETAMINOPHEN 5/325MG TABLET PO ONE (12:30)
[2018-05-31 12:48] LABS: BASOPHILS % 1.2 % (0.0-2.0); EOSINOPHILS % 0.7 % (0.0-5.0); HEMATOCRIT. 49.2 % (42.0-52.0); HEMOGLOBIN. 16.8 g/dL (14.0-18.0); LYMPHOCYTES % 20.8 % (20.0-50.0); MEAN CORPUSCULAR HEMOGLOBIN 34.2 pg (28.0-32.0); MEAN CORPUSCULAR VOLUME 100.5 fL (80.0-94.0); MEAN PLATELET VOLUME 7.8 fl (7.4-10.4); NEUTROPHILS % 72.3 % (40.0-76.0); PLATELET 275 x1000/uL (130-400); RED BLOOD CELL COUNT 4.89 mill/uL (4.7-6.1); RED CELL DISTRIBUTION WIDTH 14.3 % (11.6-14.6)
[2018-05-31 12:50] LABS: CHLORIDE 108 mEq/L (98-107)
[2018-05-31] MEDS ORDERED: ONDANSETRON HCL 4MG/2ML INJ IV PRN ×2 (14:15→16:27)
[2018-05-31] MEDS ORDERED: ACETAMINOPHEN 325MG TABLET PO PRN (14:15)
[2018-05-31] MEDS ORDERED: ALPRAZOLAM 0.5 MG TABLET PO PRN (15:00)
[2018-05-31] MEDS ORDERED: MORPHINE SULFATE 4 MG/ML CPJ (NOT FOR IM USE) IV PRN (16:27)
[2018-05-31] MEDS ORDERED: APIXABAN 5 MG TABLET PO SCH (17:00)
[2018-05-31] MEDS: MORPHINE SULFATE 4 MG/ML CPJ (NOT FOR IM USE) IV PRN (19:45)
[2018-05-31 21:23] VITALS: BP 125/99
[2018-05-31 21:33] VITALS: BP 125/99
[2018-05-31] MEDS: HYDROCODONE/ACETAMINOPHEN 5/325MG TABLET PO PRN (22:02)
[2018-05-31] MEDS ORDERED: S350 PO (22:08)
[2018-06-01] VITALS: BP 124/82
[2018-06-01] MEDS: MORPHINE SULFATE 4 MG/ML CPJ (NOT FOR IM USE) IV PRN ×4 (01:19→23:28)
[2018-06-01] MEDS ORDERED: ALPRAZOLAM 0.5 MG TABLET PO PRN ×3 (02:45→21:30)
[2018-06-01 04:00] VITALS: BP 108/83
[2018-06-01 06:54] LABS: BASOPHILS % 0.5 % (0.0-2.0); EOSINOPHILS % 0.9 % (0.0-5.0); HEMOGLOBIN. 15.9 g/dL (14.0-18.0); LYMPHOCYTES % 34.9 % (20.0-50.0); MEAN CORPUSCULAR HEMOGLOBIN 33.9 pg (28.0-32.0); MEAN CORPUSCULAR VOLUME 100.5 fL (80.0-94.0); MEAN PLATELET VOLUME 7.5 fl (7.4-10.4); MONOCYTES % 6.4 % (2.0-8.0); NEUTROPHILS % 57.3 % (40.0-76.0); PLATELET 263 x1000/uL (130-400); RED BLOOD CELL COUNT 4.67 mill/uL (4.7-6.1); RED CELL DISTRIBUTION WIDTH 14.3 % (11.6-14.6)
[2018-06-01 08:00] VITALS: BP 140/83
[2018-06-01 08:19] LABS: CHLORIDE 106 mEq/L (98-107)
[2018-06-01] MEDS: ASPIRIN 81MG TABLET PO SCH (09:47)
[2018-06-01] MEDS: DILTIAZEM HCL 120MG CAPSULE CD 24HR PO SCH (09:47)
[2018-06-01] MEDS: ENOXAPARIN 40MG/0.4ML SYR SUBCUT SCH (09:52)
[2018-06-01] MEDS ORDERED: LORAZEPAM 2MG/ML CPJ IV PRN (11:15)
[2018-06-01 16:00] VITALS: BP 124/75
[2018-06-01] MEDS: HYDROCODONE/ACETAMINOPHEN 5/325MG TABLET PO PRN (19:03)
[2018-06-01 20:00] VITALS: BP 137/98
[2018-06-02 04:00] VITALS: BP 139/81
[2018-06-02] MEDS: MORPHINE SULFATE 4 MG/ML CPJ (NOT FOR IM USE) IV PRN ×4 (04:12→23:00)
[2018-06-02] MEDS: ENOXAPARIN 40MG/0.4ML SYR SUBCUT SCH (08:45)
[2018-06-02] MEDS: DILTIAZEM HCL 120MG CAPSULE CD 24HR PO SCH (08:45)
[2018-06-02] MEDS: ASPIRIN 81MG TABLET PO SCH (08:45)
[2018-06-02 12:00] VITALS: BP 127/83
[2018-06-02] MEDS: ALPRAZOLAM 0.5 MG TABLET PO SCH ×2 (12:08→21:20)
[2018-06-02 16:00] VITALS: BP 130/88
[2018-06-02 20:00] VITALS: BP 129/77
[2018-06-03 04:00] VITALS: BP 135/79
[2018-06-03] MEDS: MORPHINE SULFATE 4 MG/ML CPJ (NOT FOR IM USE) IV PRN ×2 (05:56→14:16)
[2018-06-03 08:00] VITALS: BP 126/83
[2018-06-03] MEDS: ASPIRIN 81MG TABLET PO SCH (09:03)
[2018-06-03] MEDS: DILTIAZEM HCL 120MG CAPSULE CD 24HR PO SCH (09:04)
[2018-06-03] MEDS: ENOXAPARIN 40MG/0.4ML SYR SUBCUT SCH (09:04)
[2018-06-03] MEDS: HYDROCODONE/ACETAMINOPHEN 5/325MG TABLET PO PRN (09:05)
[2018-06-03] MEDS: ALPRAZOLAM 0.5 MG TABLET PO SCH (10:27)
[2018-06-03 12:00] VITALS: BP 125/87
[2018-06-03 17:31] VITALS: BP 122/80
== END 2018-06-03 18:23 | disposition home or self-care (01) | DRG 201 ==
LOC: ER 11:45 → 5WST 14:00 → ENRESERV 20:01 → 5WST 06-02 18:23
PROVIDERS: ADMIT Internal Medicine; ATTEND Internal Medicine
DX: I48.91 Unspecified atrial fibrillation (principal); E87.8 Other disorders of electrolyte and fluid balance, not elsewhere classified; I10 Essential (primary) hypertension; F13.239 Sedative, hypnotic or anxiolytic dependence with withdrawal, unspecified; F32.9 Major depressive disorder, single episode, unspecified; F41.9 Anxiety disorder, unspecified; Z96.659 Presence of unspecified artificial knee joint
CPT/HCPCS: 36415; 71045; 80048; 83036; 84484; 93005; 93306; 96374; 96375; 99285; J1650; J2060; J2270; J2405

== ENCOUNTER 2018-07-03 13:09 | Inpatient (IN) | payer MEDICAID ==
[~2018-07-03] VITALS: Ht 185.4 cm; Wt 99.8 kg
[~2018-07-03 13:09] MED LIST changes: -APIX5TAB PO; +S350 PO
[2018-07-03] MEDS ORDERED: LORAZEPAM 2MG/ML CPJ IV ONE (14:00)
[2018-07-03] MEDS ORDERED: NITROGLYCERIN 0.4MG TABLET SL SL PRN (14:00)
[2018-07-03] MEDS ORDERED: ENOXAPARIN 80MG/0.8ML SYR SUBCUT ONE (14:00)
[2018-07-03] MEDS ORDERED: ASPIRIN 81MG TABLET PO ONE (14:00)
[2018-07-03 14:29] LABS: BASOPHILS % 1.3 % (0.0-2.0); EOSINOPHILS % 1.2 % (0.0-5.0); HEMATOCRIT. 46.3 % (42.0-52.0); HEMOGLOBIN. 15.7 g/dL (14.0-18.0); MEAN CORPUSCULAR HEMOGLOBIN 33.5 pg (28.0-32.0); MEAN CORPUSCULAR VOLUME 98.9 fL (80.0-94.0); MEAN PLATELET VOLUME 7.5 fl (7.4-10.4); MONOCYTES % 6.3 % (2.0-8.0); NEUTROPHILS % 55.2 % (40.0-76.0); PLATELET 210 x1000/uL (130-400); RED BLOOD CELL COUNT 4.68 mill/uL (4.7-6.1)
[2018-07-03 14:34] LABS: CHLORIDE 107 mEq/L (98-107)
[2018-07-03] MEDS ORDERED: HYDROCODONE/ACETAMINOPHEN 5/325MG TABLET PO PRN (16:30)
[2018-07-03] MEDS ORDERED: CLONIDINE 0.1MG TABLET PO PRN (16:30)
[2018-07-03] MEDS ORDERED: HYDROCODONE/ACETAMINOPHEN 5/325MG TABLET PO ONE (16:45)
[2018-07-03] MEDS ORDERED: DILTIAZEM HCL 30MG TABLET PO NR ×2 (18:45→19:30)
[2018-07-03] MEDS: ALPRAZOLAM 0.5 MG TABLET PO SCH (22:24)
[2018-07-03 23:05] VITALS: BP 125/85
[2018-07-03] MEDS ORDERED: DILTIAZEM HCL 5MG/ML 5ML VIAL IV PRN (23:31)
[2018-07-04] MEDS: ATORVASTATIN CALCIUM 40MG TABLET PO SCH ×2 (00:32→21:04)
[2018-07-04] MEDS: DILTIAZEM HCL 30MG TABLET PO SCH ×4 (00:32→17:35)
[2018-07-04] MEDS: HYDROCODONE/ACETAMINOPHEN 10/325MG TABLET PO PRN ×2 (00:33→06:15)
[2018-07-04] MEDS ORDERED: Atenolol (02:48)
[2018-07-04 04:00] VITALS: BP 97/68
[2018-07-04] MEDS: ALPRAZOLAM 0.5 MG TABLET PO SCH ×3 (06:14→21:04)
[2018-07-04 06:31] LABS: BASOPHILS % 0.9 % (0.0-2.0); EOSINOPHILS % 1.2 % (0.0-5.0); HEMATOCRIT. 44.1 % (42.0-52.0); LYMPHOCYTES % 52.4 % (20.0-50.0); MEAN CORPUSCULAR HEMOGLOBIN 33.4 pg (28.0-32.0); MEAN CORPUSCULAR VOLUME 98.1 fL (80.0-94.0); MEAN PLATELET VOLUME 8.1 fl (7.4-10.4); MONOCYTES % 6.6 % (2.0-8.0); NEUTROPHILS % 38.9 % (40.0-76.0); PLATELET 228 x1000/uL (130-400); RED CELL DISTRIBUTION WIDTH 13.5 % (11.6-14.6)
[2018-07-04 06:50] LABS: CHLORIDE 109 mEq/L (98-107)
[2018-07-04 08:00] VITALS: BP 115/70
[2018-07-04] MEDS: ASPIRIN 81MG TABLET PO SCH (08:45)
[2018-07-04] MEDS: MORPHINE SULFATE 4 MG/ML CPJ (NOT FOR IM USE) IV PRN ×4 (08:45→21:36)
[2018-07-04 12:00] VITALS: BP 139/90
[2018-07-04] MEDS ORDERED: LACTULOSE 20G/30ML UDC PO NR (13:00)
[2018-07-04 16:00] VITALS: BP 152/85
[2018-07-04] MEDS ORDERED: BISACODYL 10MG SUPP PR PRN (16:15)
[2018-07-04] MEDS ORDERED: SORBITOL 70% SOLN 30ML PO NR (16:15)
[2018-07-04 20:00] VITALS: BP 138/88
[2018-07-05] VITALS: BP 128/72
[2018-07-05] MEDS: DILTIAZEM HCL 30MG TABLET PO SCH ×5 (00:03→23:27)
[2018-07-05] MEDS: MORPHINE SULFATE 4 MG/ML CPJ (NOT FOR IM USE) IV PRN ×5 (02:34→22:39)
[2018-07-05 04:00] VITALS: BP 129/73
[2018-07-05] MEDS: ALPRAZOLAM 0.5 MG TABLET PO SCH ×3 (05:07→21:34)
[2018-07-05 08:00] VITALS: BP 115/70
[2018-07-05] MEDS: ASPIRIN 81MG TABLET PO SCH (10:07)
[2018-07-05] MEDS ORDERED: SORBITOL 70% SOLN 30ML PO NR (11:45)
[2018-07-05 12:00] VITALS: BP 111/69
[2018-07-05 20:00] VITALS: BP 106/84
[2018-07-05] MEDS: ATORVASTATIN CALCIUM 40MG TABLET PO SCH (21:34)
[2018-07-06] VITALS: BP 116/79
[2018-07-06 04:00] VITALS: BP 109/71
[2018-07-06] MEDS: DILTIAZEM HCL 30MG TABLET PO SCH ×2 (05:06→11:04)
[2018-07-06] MEDS: ALPRAZOLAM 0.5 MG TABLET PO SCH (05:08)
[2018-07-06] MEDS: MORPHINE SULFATE 4 MG/ML CPJ (NOT FOR IM USE) IV PRN ×2 (06:13→10:59)
[2018-07-06 08:00] VITALS: BP 129/82
[2018-07-06] MEDS: ASPIRIN 81MG TABLET PO SCH (09:47)
[2018-07-06 12:00] VITALS: BP 134/85
[2018-07-06 12:59] VITALS: BP 134/85
== END 2018-07-06 13:50 | disposition home or self-care (01) | DRG 201 ==
LOC: ER 13:09 → 5WST 15:21 → EDBEDREQ 15:26 → ENRESERV 22:03 → 6WST 23:31 → 5WST 23:47
PROVIDERS: ADMIT Internal Medicine; ATTEND Internal Medicine
DX: I48.2 Chronic atrial fibrillation (principal); I42.9 Cardiomyopathy, unspecified; E78.5 Hyperlipidemia, unspecified; F41.9 Anxiety disorder, unspecified; I10 Essential (primary) hypertension; K59.00 Constipation, unspecified; Z96.659 Presence of unspecified artificial knee joint; F17.200 Nicotine dependence, unspecified, uncomplicated; K40.90 Unilateral inguinal hernia, without obstruction or gangrene, not specified as recurrent
CPT/HCPCS: 36415; 49505; 71045; 73620; 74018; 80048; 83880; 84484; 93005; 93970; 96372; 96374; 99285; J1650; J2060; J2270

== ENCOUNTER 2018-08-05 20:56 | Emergency (ER) | payer MEDICAID ==
[~2018-08-05] VITALS: Ht 188 cm; Wt 106.0 kg
[~2018-08-05 20:56] MED LIST changes: +Atenolol
[2018-08-05] MEDS ORDERED: SODIUM CHLORIDE 0.9% 1,000 ML IV ONE (23:07)
[2018-08-05] MEDS ORDERED: NITROGLYCERIN OINT 1GM/INCH UDPKT TD ONE (23:15)
[2018-08-05] MEDS ORDERED: LORAZEPAM 2MG/ML CPJ IV ONE (23:15)
[2018-08-05 23:51] LABS: BASOPHILS % 0.9 % (0.0-2.0); HEMATOCRIT. 47.5 % (42.0-52.0); HEMOGLOBIN. 16.2 g/dL (14.0-18.0); LYMPHOCYTES % 37.5 % (20.0-50.0); MEAN CORPUSCULAR HEMOGLOBIN 32.9 pg (28.0-32.0); MEAN CORPUSCULAR VOLUME 96.3 fL (80.0-94.0); MEAN PLATELET VOLUME 7.3 fl (7.4-10.4); MONOCYTES % 5.5 % (2.0-8.0); NEUTROPHILS % 55.1 % (40.0-76.0); PLATELET 239 x1000/uL (130-400); RED BLOOD CELL COUNT 4.93 mill/uL (4.7-6.1); RED CELL DISTRIBUTION WIDTH 13.5 % (11.6-14.6)
[2018-08-05 23:55] LABS: CHLORIDE 105 mEq/L (98-107)
[2018-08-06 05:30] VITALS: BP 112/75
== END 2018-08-06 05:36 | disposition home or self-care (01) ==
LOC: ER 20:56
DX: F41.9 Anxiety disorder, unspecified (principal); R07.89 Other chest pain; I48.91 Unspecified atrial fibrillation; I10 Essential (primary) hypertension; Z79.01 Long term (current) use of anticoagulants; F17.210 Nicotine dependence, cigarettes, uncomplicated; Z96.652 Presence of left artificial knee joint
CPT/HCPCS: 36415; 71045; 80053; 83880; 84484; 85025; 93005; 96374; 99284; J2060; J7030; Z7610

== ENCOUNTER 2025-02-14 04:33 | Inpatient (IN) | payer MEDICAID ==
[~2025-02-14] VITALS: Ht 185.4 cm; Wt 80.8 kg
[~2025-02-14 04:33] MED LIST changes: -ALPR2TAB2 PO; -ASPI-1159 PO; -Atenolol; +BUSP15TA3 PO; +COR3 PO; +DIGO-28 PO; +DILT300C53 PO; -DILT30TA38 PO; +DULO30CA2 PO; -FAMO-135 MT; +FURO20TA4 PO; -HYDR-519 PO; +MELA3TAB40 PO; +RIVA20TA MT; +RIVA20TA PO; -S350 PO; +SPIR25TA PO; +SUCR1TAB PO; +TOPUD PO; +[UNRECOGNIZED DRUG - CODE] TP
[2025-02-14 04:37] VITALS: O2SAT 98
[2025-02-14 05:33] LABS: BASOPHILS % 0.5 % (0.0-2.0); EOSINOPHILS % 1.2 % (0.0-5.0); HEMATOCRIT. 39.9 % (42.0-52.0); HEMOGLOBIN. 12.3 g/dL (14.0-18.0); LYMPHOCYTES % 24.0 % (20.0-50.0); MEAN PLATELET VOLUME 7.8 fl (7.4-10.4); MONOCYTES % 6.2 % (2.0-8.0); NEUTROPHILS % 68.1 % (40.0-76.0); PLATELET 230 x1000/uL (130-400); RED BLOOD CELL COUNT 4.27 mill/uL (4.7-6.1); RED CELL DISTRIBUTION WIDTH 17.7 % (11.6-14.6)
[2025-02-14 06:00] LABS: CREATININE 0.7 mg/dL (0.6-1.3)
[2025-02-14 06:01] LABS: PROTEIN TOTAL 6.2 g/dL (6.0-8.3); UREA NITROGEN BLOOD 7 mg/dL (9-23)
[2025-02-14 06:02] LABS: ASPARTATE AMINOTRANSFERASE 27 IU/L (<34)
[2025-02-14 06:03] LABS: BILIRUBIN DIRECT 0.2 mg/dL (<=3.0); BILIRUBIN TOTAL 0.3 mg/dL (0.1-1.0)
[2025-02-14 06:50] LABS: TROPONIN I HIGH SENSITIVITY 28 ng/L (3.0-53)
[2025-02-14] MEDS: ONDANSETRON HCL 4MG/2ML INJ IV ONE (07:40)
[2025-02-14] MEDS: MORPHINE SULFATE 4 MG/ML INJ (FOR IV/IM USE) IV ONE (07:41)
[2025-02-14] MEDS: DIPHENHYDRAMINE 50MG/ML VIAL IV ONE (07:55)
[2025-02-14] MEDS ORDERED: ACETAMINOPHEN 325MG TABLET PO PRN ×2 (10:30)
[2025-02-14] MEDS ORDERED: IPRATROPIUM/ALBUTEROL 0.5-3(2.5)MG/3ML NEB HHN PRN (10:30)
[2025-02-14] MEDS ORDERED: GUAIFENESIN 200MG/10ML SUGAR FREE UDC PO PRN (10:30)
[2025-02-14] MEDS ORDERED: POTASSIUM CHLORIDE 40 MEQ in DEXT 5% WATER 230 ML IV ONE (10:30)
[2025-02-14] MEDS ORDERED: NITROGLYCERIN 0.4MG TABLET SL SL PRN (11:15)
[2025-02-14] MEDS: DEXT 5%/0.9% NACL 1,000 ML IV SCH (11:23)
[2025-02-14] MEDS: SPIRONOLACTONE 12.5MG TABLET PO SCH (11:24)
[2025-02-14] MEDS: ENOXAPARIN 80MG/0.8ML SYR SUBCUT SCH ×2 (11:24→21:00)
[2025-02-14] MEDS: KCL 20MEQ/100ML X 2 FOR TOTAL KCL 40MEQ/200ML IV SCH (11:25)
[2025-02-14] MEDS: DULOXETINE HCL 30MG DR CAPSULE PO SCH (11:25)
[2025-02-14] MEDS: DILTIAZEM HCL 300MG CAPSULE SR 24HR PO SCH (11:25)
[2025-02-14] MEDS: FUROSEMIDE 20MG/2ML VIAL IVP SCH (11:29)
[2025-02-14] MEDS: ASPIRIN 81MG TABLET PO SCH (11:29)
[2025-02-14 11:30] VITALS: BP 149/62; PULSE 77; RESP 16; TEMP 36.696
[2025-02-14 12:00] VITALS: BP 129/77; PULSE 96; RESP 18; TEMP 36.4; O2SAT 99
[2025-02-14] MEDS: DILTIAZEM HCL 5MG/ML 5ML VIAL IV SCH (12:56)
[2025-02-14 13:41] LABS: INR 1.1
[2025-02-14 13:46] LABS: TROPONIN I HIGH SENSITIVITY 26 ng/L (3.0-53)
[2025-02-14 16:00] VITALS: BP 134/89; PULSE 99; RESP 17; TEMP 36.6; O2SAT 99
[2025-02-14] MEDS: DIGOXIN 500MCG/2ML AMP IV SCH ×2 (16:00→17:27)
[2025-02-14] MEDS ORDERED: SENNOSIDES/DOCUSATE SOD 8.6/50MG TABLET PO PRN (18:00)
[2025-02-14] MEDS ORDERED: DIGOXIN 500MCG/2ML AMP IV SCH (18:00)
[2025-02-14 19:33] LABS: CREATINE KINASE MB FRACTION 2.2 ng/mL (0.5-3.6)
[2025-02-14 19:34] LABS: PHOSPHORUS 3.3 mg/dL (2.5-4.9)
[2025-02-14] MEDS: KETOROLAC 30MG/ML VIAL IV PRN (19:45)
[2025-02-14] MEDS: ONDANSETRON HCL 4MG/2ML INJ IV PRN (19:46)
[2025-02-14 20:00] VITALS: BP 166/98; PULSE 96; RESP 20; TEMP 37.4; O2SAT 100
[2025-02-14] MEDS ORDERED: CARVEDILOL 3.125 MG TABLET PO SCH (21:00)
[2025-02-14 21:23] LABS: FOLIC ACID (FOLATE) SERUM 14.24 ng/mL (>5.38); VITAMIN B12 SERUM 324 pg/mL (211-911)
[2025-02-14] MEDS: CARVEDILOL 6.25 MG TABLET PO SCH (21:46)
[2025-02-14] MEDS: MELATONIN 3MG TABLET PO SCH (21:46)
[2025-02-14] MEDS: ATORVASTATIN CALCIUM 40MG TABLET PO SCH (21:46)
[2025-02-14] MEDS: BUSPIRONE HCL 5MG TABLET PO SCH (21:46)
[2025-02-14] MEDS: LORAZEPAM 0.5MG TABLET PO NR (21:51)
[2025-02-15] VITALS: BP 143/86; PULSE 68; RESP 19; TEMP 36.9; O2SAT 99
[2025-02-15 04:00] VITALS: BP 148/94; PULSE 81; RESP 18; TEMP 36.7; O2SAT 100
[2025-02-15] MEDS: DILTIAZEM HCL 90MG TABLET PO SCH (05:45)
[2025-02-15] MEDS: PANTOPRAZOLE SODIUM 40 MG/VIAL IV SCH (09:12)
[2025-02-15 12:00] VITALS: BP 121/73; PULSE 64; RESP 19; TEMP 37; O2SAT 97
[2025-02-15] MEDS ORDERED: KCL 20MEQ/100ML PREMIX 100 ML IV SCH (14:00)
[2025-02-15] MEDS: ACETAMINOPHEN 1000MG/100ML 100 ML IV NR (15:43)
[2025-02-15] MEDS: DEXT 5%/LACTATED RINGERS 1,000 ML IV ONE (15:44)
[2025-02-15] MEDS: MAGNESIUM 4 G PREMIX 100 ML IV SCH (15:44)
[2025-02-15] MEDS: BUSPIRONE HCL 5MG TABLET PO SCH (15:45)
[2025-02-15] MEDS: POTASSIUM CHLORIDE 20MEQ/PACKET PO SCH (15:45)
[2025-02-15] MEDS: FAMOTIDINE 20MG TABLET PO NR (15:46)
[2025-02-15] MEDS: GABAPENTIN 100MG CAPSULE PO SCH (15:46)
[2025-02-15 16:00] VITALS: BP 126/80; PULSE 64; RESP 18; TEMP 36.2; O2SAT 96
[2025-02-15] MEDS: KETOROLAC 15MG/ML VIAL IV PRN (19:19)
[2025-02-15] MEDS: DILTIAZEM HCL 60MG TABLET PO SCH (19:20)
[2025-02-15] MEDS: DIGOXIN 125MCG TABLET PO SCH (19:21)
[2025-02-15 20:00] VITALS: BP 135/78; PULSE 67; RESP 18; TEMP 36.7; O2SAT 99
[2025-02-15] MEDS: LACTULOSE 20G/30ML UDC PO SCH (20:00)
[2025-02-15] MEDS ORDERED: ATORVASTATIN CALCIUM 40MG TABLET PO SCH (21:00)
[2025-02-15] MEDS: MELATONIN 3MG TABLET PO SCH (21:37)
[2025-02-16] VITALS: BP 131/67; PULSE 61; RESP 18; TEMP 36.7; O2SAT 98
[2025-02-16 04:00] VITALS: BP 170/80; PULSE 64; RESP 18; TEMP 36.7; O2SAT 99
[2025-02-16 04:20] VITALS: BP 170/80; RESP 18
[2025-02-16] MEDS: CLONIDINE 0.1MG TABLET PO PRN (04:20)
[2025-02-16 07:07] LABS: CREATININE 0.6 mg/dL (0.6-1.3)
[2025-02-16 07:08] LABS: LDL CHOLESTEROL 44 mg/dL (5-100); PROTEIN TOTAL 5.5 g/dL (6.0-8.3); TRIGLYCERIDE 61 mg/dL (0-150); UREA NITROGEN BLOOD < 5 mg/dL (9-23)
[2025-02-16 07:09] LABS: ASPARTATE AMINOTRANSFERASE 21 IU/L (<34); BILIRUBIN DIRECT 0.2 mg/dL (<=3.0); T4 FREE 1.23 ng/dL (0.89-1.76)
[2025-02-16 07:10] LABS: BILIRUBIN TOTAL 0.3 mg/dL (0.1-1.0)
[2025-02-16 07:13] LABS: BASOPHILS % 0.4 % (0.0-2.0); EOSINOPHILS % 3.2 % (0.0-5.0); HEMATOCRIT. 31.9 % (42.0-52.0); HEMOGLOBIN. 10.0 g/dL (14.0-18.0); LYMPHOCYTES % 24.0 % (20.0-50.0); MEAN PLATELET VOLUME 8.1 fl (7.4-10.4); MONOCYTES % 6.8 % (2.0-8.0); NEUTROPHILS % 65.6 % (40.0-76.0); PLATELET 264 x1000/uL (130-400); RED BLOOD CELL COUNT 3.38 mill/uL (4.7-6.1); RED CELL DISTRIBUTION WIDTH 17.0 % (11.6-14.6)
[2025-02-16] MEDS: DULOXETINE HCL 20MG DR CAPSULE PO SCH (10:35)
[2025-02-16 10:36] VITALS: PULSE 64
[2025-02-16] MEDS: CYANOCOBALAMIN 100MCG TABLET PO SCH (10:36)
[2025-02-16] MEDS ORDERED: EMPA10TA MT (11:06)
[2025-02-16] MEDS ORDERED: HYDR-3782 PO (11:06)
[2025-02-16] MEDS ORDERED: COR6 PO (11:06)
[2025-02-16] MEDS: FUROSEMIDE 40MG TABLET PO SCH (12:15)
[2025-02-16] MEDS ORDERED: FAMOTIDINE 20MG TABLET PO SCH (17:00)
[2025-02-16] MEDS ORDERED: ACETAMINOPHEN 1000MG/100ML 100 ML IV SCH (20:00)
[2025-02-16] MEDS ORDERED: FUROSEMIDE 40MG TABLET PO SCH (21:00)
== END 2025-02-16 18:20 | disposition home or self-care (01) | DRG 247 ==
LOC: ER 04:33 → EDBEDREQ 06:31 → EDBEDREQTM 06:31 → 6WST 08:13 → EDBEDREQ 08:16 → EDBEDREQSVC 08:16 → EDBEDREQTM 08:16 → ENRESERV 09:30
PROVIDERS: ADMIT Hospitalist; ATTEND Hospitalist
DX: K56.7 Ileus, unspecified (principal); I31.39 Other pericardial effusion (noninflammatory); I11.0 Hypertensive heart disease with heart failure; D63.8 Anemia in other chronic diseases classified elsewhere; I42.9 Cardiomyopathy, unspecified; I82.502 Chronic embolism and thrombosis of unspecified deep veins of left lower extremity; I47.19 Other supraventricular tachycardia; Z79.01 Long term (current) use of anticoagulants; K27.9 Peptic ulcer, site unspecified, unspecified as acute or chronic, without hemorrhage or perforation; E11.65 Type 2 diabetes mellitus with hyperglycemia; J43.9 Emphysema, unspecified; I34.0 Nonrheumatic mitral (valve) insufficiency; K56.41 Fecal impaction; M48.56XA Collapsed vertebra, not elsewhere classified, lumbar region, initial encounter for fracture; I50.22 Chronic systolic (congestive) heart failure; K52.9 Noninfective gastroenteritis and colitis, unspecified; E78.5 Hyperlipidemia, unspecified; I48.19 Other persistent atrial fibrillation; F41.1 Generalized anxiety disorder; G47.00 Insomnia, unspecified; E87.6 Hypokalemia; K21.9 Gastro-esophageal reflux disease without esophagitis; E83.42 Hypomagnesemia; Z90.49 Acquired absence of other specified parts of digestive tract; Z59.00 Homelessness unspecified; Z87.11 Personal history of peptic ulcer disease; Z86.73 Personal history of transient ischemic attack (TIA), and cerebral infarction without residual deficits; Z79.899 Other long term (current) drug therapy; Z91.148 Patient's other noncompliance with medication regimen for other reason
CPT/HCPCS: 36415; 71045; 74018; 74176; 80048; 80061; 80076; 80162; 82150; 82553; 82607; 82728; 82746; 83036; 83540; 83550; 83735; 83880; 84100; 84439; 84443; 84484; 85025; 93005; 93306; 93970; 99285; A4615; J1160; J1200; J1650; J1885; J1938; J2270; J2405; J2470; J3475; J3480; J3490; J7042; J0131